=== PATIENT | male | born 1965 | race Caucasian/White ===

== ENCOUNTER → 2019-12-28 | Outpatient (REF) | payer MEDICARE, MEDICAID | LOC: M LAB REF 13:07 | PROVIDERS: ATTEND Surgery | DX: L57.0 Actinic keratosis (principal); L89.132 Pressure ulcer of right lower back, stage 2 ==

== ENCOUNTER → 2021-06-30 | Outpatient (CLI) | payer OTHER, MEDICARE, MEDICAID | LOC: M PAIN 13:00 | PROVIDERS: ATTEND Anesthesiology | DX: M79.10 Myalgia, unspecified site (principal); Z87.891 Personal history of nicotine dependence; Z88.1 Allergy status to other antibiotic agents; Z88.8 Allergy status to other drugs, medicaments and biological substances; Z79.01 Long term (current) use of anticoagulants; Z79.891 Long term (current) use of opiate analgesic; Z79.899 Other long term (current) drug therapy ==